=== PATIENT | female | born 1995 | race Asian ===

== ENCOUNTER 2019-05-25 00:33 | Emergency (ER) | payer BC, SELFPAY ==
[2019-05-25] MEDS ORDERED: Ondansetron PF 4 MG/2 ML Vial ONE (01:35)
== END 2019-05-25 04:55 | disposition home or self-care (01) ==
LOC: EDBD 00:33 → ERS 00:33
DX: F10.129 Alcohol abuse with intoxication, unspecified (principal)
CPT/HCPCS: 96361; 96374; J2405